=== PATIENT | female | born 2000 | race Caucasian/White ===

== ENCOUNTER 2022-08-06 12:15 | Observation (INO) | payer BC, SELFPAY ==
[2022-08-06] VITALS (12 sets, daily range): BP systolic 94–103; BP diastolic 54–60; PULSE 70–103; TEMP 36.7; BMI 25.8
[2022-08-06] MEDS: CAFFEINE 200 MG TABLET PO (14:50)
[2022-08-06] MEDS: TERBUTALINE SULFATE 1 MG/ML VIAL 0.25 MG SUB-Q (14:54)
--- NOTE | 2022-08-26 18:42 | PM.OBTRLD ---
OB - Triage/Final Diagnosis Visit Information Comments/Additional reasons for admission: I have assessed the risk for this patient, Madhu Garza, and determined that she would benefit from observation care. Final Diagnosis (1) False labor: Code(s): O47.9 - False labor, unspecified Status: Acute
== END 2022-08-06 15:54 | disposition home or self-care (01) ==
PROVIDERS: Admitting Provider Obstetrics & Gynecology; Visit Provider Obstetrics & Gynecology
DX: O47.03 False labor before 37 completed weeks of gestation, third trimester (principal); Z3A.29 29 weeks gestation of pregnancy
CPT/HCPCS: 96372; A9270; G0378; G0379; J3105

== ENCOUNTER 2022-08-27 09:01 | Observation (INO) | payer BC, SELFPAY ==
[2022-08-27 09:20] VITALS: BP 85/53; PULSE 81
[2022-08-27 09:30] VITALS: BP 100/54; PULSE 69
[2022-08-27 09:45] VITALS: BP 95/58; PULSE 72; BMI 27.1
[2022-08-27 09:53] LABS: Add Urine Microscopic? YES; Amorphous Sediment Urine Present; Appearance Urine Turbid (Clear); Bacteria Urine 4+ /hpf; Bilirubin Urine Negative (Negative); Blood Urine Negative (Negative); Color Urine Dark Yellow (Yellow); Glucose Urine UA Negative (Negative); Ketones Urine Negative (Negative); Leukocyte Esterase Ur 3+ LEU/UL (NEGATIVE); Nitrate Urine Negative (Negative); Protein Urine 1+ mg/dL (Negative); RBC Urine 0-2 /hpf (0-2); Squamous Epithelial Cell Urine Moderate /hpf (Few); WBC Urine >100 /hpf (0-3); pH Urine 8.5 (5.0-9.0)
[2022-08-27 10:00] VITALS: BP 93/56; PULSE 70
[2022-08-27 10:15] VITALS: BP 93/61; PULSE 67
[2022-08-27 10:30] VITALS: BP 97/65; PULSE 68
--- NOTE | 2022-09-04 07:35 | P.PNOB_ITS ---
OB - Triage/Final Diagnosis Visit Information Comments/Additional reasons for admission: I have assessed the risk for this patient, Madhu Garza, and determined that she would benefit from observation care. Evaluation Laboratory results: Laboratory Tests 08/27/22 09:30 Urine Color Dark yellow Urine Appearance Turbid H Urine pH 8.5 Ur Specific [place] 1.020 Urine Protein 1+ H Urine Glucose (UA) Negative Urine Ketones Negative Ur Blood (Man) Negative Urine Nitrate Negative Urine Bilirubin Negative Urine Urobilinogen 1.0 Ur Leukocyte Esterase 3+ H Urine RBC 0-2 Urine WBC >100 H Ur Squamous Epith Cells Moderate Amorphous Sediment Present Urine Bacteria 4+ H Urine Casts 11-20 Final Diagnosis (1) False labor: Code(s): O47.9 - False labor, unspecified Status: Acute
== END 2022-08-27 11:50 | disposition home or self-care (01) ==
PROVIDERS: Admitting Provider Obstetrics & Gynecology; Visit Provider Obstetrics & Gynecology
DX: O47.03 False labor before 37 completed weeks of gestation, third trimester (principal); O26.893 Other specified pregnancy related conditions, third trimester; R10.9 Unspecified abdominal pain; Z3A.32 32 weeks gestation of pregnancy
CPT/HCPCS: 81001; 87086; G0378; G0379

== ENCOUNTER 2022-09-14 11:14 | Observation (INO) | payer BC, SELFPAY ==
[2022-09-14] VITALS (19 sets, daily range): BP systolic 92–106; BP diastolic 47–69; PULSE 61–102; BMI 28.1
[2022-09-14 11:38] LABS: Glucose Point of Care 105 mg/dl (65-105)
[2022-09-14] MEDS: ACETAMINOPHEN 500 MG TABLET 1000 MG PO (12:23)
[2022-09-14] MEDS: LACTATED RINGERS 1,000 ML 999 ML IV CONT (12:24)
--- NOTE | 2022-09-14 12:49 | OBADM ---
This patient, Madhu Garza, admitted to the OB room OB Post 116 for observation. Patient/family oriented to hospital policies and general routines including ID bracelet, bed and alarms, visiting hours, pain management, procedures, bathroom and other care routines, personal items, smoking policy, room service/diet, and visiting hours. Patient/Family are encouraged to report perceived risks to care and to ask questions if they do not understand what they are told or what they should do.
--- NOTE | 2022-09-18 15:47 | PM.OBTRLD ---
OB - Triage/Final Diagnosis Visit Information Comments/Additional reasons for admission: I have assessed the risk for this patient, Madhu Garza, and determined that she would benefit from observation care. Evaluation Laboratory results: Laboratory Tests 09/14/22 11:35 POC Capillary Glucose 105 Final Diagnosis (1) Syncope and collapse: Code(s): R55 - Syncope and collapse Status: Acute
== END 2022-09-14 16:34 | disposition home or self-care (01) ==
PROVIDERS: Obstetrics & Gynecology; Admitting Provider Obstetrics & Gynecology; PCP Pediatrics; Visit Provider Obstetrics & Gynecology
DX: O26.893 Other specified pregnancy related conditions, third trimester (principal); R55 Syncope and collapse; Z3A.35 35 weeks gestation of pregnancy
CPT/HCPCS: 82948; A9270; G0378; G0379; J7120

== ENCOUNTER 2022-09-23 19:45 | Inpatient (IN) | payer BC, SELFPAY ==
[2022-09-23] VITALS (68 sets, daily range): BP systolic 75–117; BP diastolic 41–73; PULSE 25–107; O2SAT 93–100; BMI 28.5
--- NOTE | 2022-09-23 20:28 | WPDOBADMIT ---
Obstetrics - Admit Note Admission Note: record reviewed. No pertinent additions to the history and/or any subsequent changes in the physical findings that are not consistent with the expected course of the were found. pt arrived in labor, hx of placental abruption, anticipate vaginal delivery Additions to the history and/or subsequent changes in the physical findings follow. None.
[2022-09-23] MEDS: LACTATED RINGERS 1,000 ML 125 ML IV CONT ×2 (20:35→22:02)
[2022-09-23 20:39] LABS: Basophils Percent Auto 0.2 % (0.2-1.2); Eosinophils Percent Auto 0.2 % (0-4.4); Hematocrit 37.4 % (37.0-47.0); Hemoglobin 12.5 g/dL (12.0-15.0); Immature Granulocyte Absolute 0.04 K/mm3 (0.00-0.031); Immature Granulocyte Percent A 0.5 % (0-0.5); Lymphocytes Absolute Auto 1.84 K/mm3 (0.9-3.2); Lymphocytes Percent Auto 21.5 % (18.3-44.2); Mean Corpuscular HGB Conc 33.4 g/dl (32-36); Mean Corpuscular Hemoglobin 29.3 pg (26-34); Mean Corpuscular Volume 87.6 fl (80-100); Mean Platelet Volume 9.5 fl (7.4-10.4); Monocytes Absolute Auto 0.7 K/mm3 (0.1-0.6); Monocytes Percent Auto 8.6 % (2.6-8.5); Neutrophils Absolute Auto 5.9 K/mm3 (1.3-6.7); Platelet Count Result 216 k/mm3 (150-375); Red Blood Count 4.27 M/mm3 (4.2-5.4); Red Cell Distribution Width 12.1 % (11.5-14.5); White Blood Count 8.6 K/mm3 (4.5-10.0)
[2022-09-23 21:01] LABS: Glucose Point of Care 84 mg/dl (65-105)
[2022-09-23] MEDS: fentaNYL CITRATE INJ (*CRX) 100 MCG/2 ML VIAL 50 MCG IV PUSH ×2 (21:19→21:45)
--- NOTE | 2022-09-23 22:04 | WPDANESEPP ---
Anes - Eval Pre Procedure Procedure: Labor epidural Date/Time: 09/23/22 22:04 Surgeon: Paulo Preop Diagnosis: Abdominal pain with contractions Pre Op Diagnosis: Contractions Patient Data Age: 22 Gender: F Height: 1.47 m Weight: 62 kg Last Vital Signs Pulse 69 09/23/22 21:45 BP 110/68 09/23/22 21:45 Pulse Ox 95 09/23/22 22:01 Allergies Allergy/AdvReac Type Severity Reaction Status Date / Time No Known Allergies Allergy Verified 08/06/22 14:29 Home Medications Medication Instructions Recorded Confirmed Type magnesium oxide 140 mg capsule 140 mg PO DAILY 08/06/22 08/06/22 History vit no.95-ferrous 1 tablet PO DAILY 08/06/22 09/14/22 History fumarate 28 mg-folic acid 800 mcg tablet () nitrofurantoin 100 mg PO Q12H 7 days #14 caps 08/27/22 Rx monohydrate/macrocrystals 100 mg capsule ondansetron 4 mg disintegrating 4 mg PO Q6H PRN Nausea #15 tabs 08/27/22 Rx tablet Laboratory Tests 09/23/22 09/23/22 20:31 20:59 WBC 8.6 K/mm3 (4.5-10.0) RBC 4.27 M/mm3 (4.2-5.4) Hgb 12.5 g/dL (12.0-15.0) Hct 37.4 % (37.0-47.0) MCV 87.6 fl (80-100) MCH 29.3 pg (26-34) MCHC 33.4 g/dl (32-36) RDW 12.1 % (11.5-14.5) Plt Count 216 k/mm3 (150-375) MPV 9.5 fl (7.4-10.4) Immature Gran % (Auto) 0.5 % (0-0.5) Neut % (Auto) 69.0 % (45.5-73.1) Lymph % (Auto) 21.5 % (18.3-44.2) [place] % (Auto) 8.6 H % (2.6-8.5) Eos % (Auto) 0.2 % (0-4.4) Baso % (Auto) 0.2 % (0.2-1.2) Lymph # (Auto) 1.84 K/mm3 (0.9-3.2) [place] # (Auto) 0.7 H K/mm3 (0.1-0.6) Eos # (Auto) 0.0 K/mm3 (0-0.3) Baso # (Auto) 0.0 K/mm3 (0.0-0.1) Abs Immat Gran (auto) 0.04 H K/mm3 (0.00-0.031) Absolute Neuts (auto) 5.9 K/mm3 (1.3-6.7) Absolute Nucleated RBC 0.0 K/mm3 (0.0-0.012) Nucleated RBC % 0.0 % (0.0-0.2) POC Capillary Glucose 84 mg/dl (65-105) RPR Pending : gestational age HCG: positive Patient hx anesthesia problems: none Family hx anesthesia problems: none Results Review: All pre-operative results and documents have been reviewed as part of the pre-operative evaluation. [facility] Past Medical History Medical History Overweight (BMI 25.0-29.9) and not yet delivered Exam Day of Procedure 09/23/22 22:04 Patient weight: overweight
[2022-09-24] VITALS (45 sets, daily range): BP systolic 84–132; BP diastolic 43–86; PULSE 52–94; RESP 12–20; TEMP 36.3–36.8; O2SAT 96–100
[2022-09-24] MEDS: LORATADINE 10 MG TABLET PO (01:35)
[2022-09-24] MEDS: OXYTOCIN 30 UNITS/NS 500 ML 30 UNITS/500 ML BAG 999 UNITS IV CONT (01:55)
--- NOTE | 2022-09-24 02:06 | P.PCNOB_ITS ---
OB - Delivery Note Procedure Delivery date: 09/24/22 Procedure: Intrapartal Events: Other (meconium) Delivery augmentation: Rupture of Membranes Delivery monitor: External FHT and External Uterine Route of delivery: Laceration Description: None Specimen: Yes Quantitative Blood Loss (ml): 100 Anesthesia type: Epidural Disposition: Floor [place] Baby Date of : 09/24/22 Time of : 01:54 Weeks of gestation at delivery: 36 gender: Female presentation: vertex position: Left Occiput Anterior Placenta delivery description: Spontaneous and Other (meconium stained) Cord Vessel Description: 3 Vessels and Clamped/Cut Narrative: baby to warmer to be evaluated, mother in stable condition
[2022-09-24] MEDS: OXYTOCIN 30 UNITS/NS 500 ML 30 UNITS/500 ML BAG 125 UNITS IV CONT (02:35)
[2022-09-24] MEDS: BENZOCAINE 20% AER SPR (*SP) 56 GM CAN 1 SPRAY TOPICAL (02:40)
[2022-09-24] MEDS: SERTRALINE HCL 50 MG TABLET PO (03:10)
--- NOTE | 2022-09-24 04:58 | ADMGEN ---
This patient, Madhu Garza, was admitted to OB 2nd Floor Room 292-00. Patient/family oriented to hospital policies and general routines including ID bracelet, bed and alarms, visiting hours, pain management, procedures, bathroom and other care routines, personal items, smoking policy, room service/diet, and visiting hours. Information on how to activate the Rapid Response Team has been discussed. Patient/Family are encouraged to report perceived risks to care and to ask questions if they do not understand what they are told or what they should do.
[2022-09-24] MEDS: WITCH HAZEL 40 PADS 1 PAD TOPICAL (05:26)
[2022-09-24] MEDS: IBUPROFEN 600 MG TABLET PO ×2 (05:28→15:58)
[2022-09-24] MEDS: ACETAMINOPHEN 325 MG TABLET 650 MG PO ×2 (05:29→15:58)
[2022-09-24 05:38] LABS: Rapid Plasma Reagin Non-Reactive (NonReactive)
[2022-09-24] MEDS: MULTIVIT/MIN/PREN/FOL AC/IRON TABLET 1 TAB PO (09:41)
--- NOTE | 2022-09-24 10:57 | PC.NURSE ---
[id number] Introductions were made, then consulted with patient to assess needs related to . Mother led the conversation with her?plans to feed?her infant and the?experience so far. Mother has been pumping to protect her milk supply as infant is in level 2 nursery. Instructions given on cleaning, care, usage, that there should be no pain, pumping schedule for milk production, collection, and storage of human milk. Patient is pumping without pain and is knowledgeable with pumping and is encouraged to pump for comfort and nipple stretching/stimulation for adequate milk production every 3 hours 1-2 times at night and states she has been pumping every 3 hours. Resources provided for inpatient and outpatient services with the feeding sheet, mom/baby guide and name written on the white board. Mother voiced understanding of information and will call if there is a request for assistance.
[2022-09-24] MEDS: DOCUSATE SODIUM 100 MG CAPSULE PO (15:57)
[2022-09-25 05:31] LABS: Hematocrit 36.5 % (37.0-47.0); Hemoglobin 11.9 g/dL (12.0-15.0)
--- NOTE | 2022-09-25 06:26 | PM.OBPNVD ---
OB - PN: Subj Subjective Date/time seen: 09/25/22 06:26 Patient comments: no complaints and pain well controlled baby status: doing well (but on D10) feeding status: exclusively breast feeding OB - PN: Obj Data Labs 09/25/22 04:40 Labs: Laboratory Results - last 24 hr 09/25/22 04:40 Hgb 11.9 L Hct 36.5 L OB - PN A/P Plan day: 1 Plan: routine care Time Spent With Patient Time: Total time spent is greater than 50% in coordination of care (as documented) at patient's floor/unit and/or counseling patient: Time with patient: less than 15 minutes Exam Narrative: NAD abdomen soft, nontender, fundus firm below the umbilicus Extremities nontender, 1+ edema
--- NOTE | 2022-09-25 07:51 | WPDANLDPN2 ---
Anes-Prog Note L&D Date/Time: 09/25/22 07:51 Comfortable throughout: labor and delivery Neuraxial method: epidural Epidural/Spinal procedure site: clean & non-tender Neuro status: Neuro function grossly intact. Cardiovascular status: normal Respiratory status: normal Airway patency: baseline Mental status: baseline Post-Op hydration status: normal Vital Signs: Last Vital Signs Temp 36.3 C L 09/24/22 19:10 Pulse 60 09/24/22 23:00 Resp 16 09/24/22 23:00 BP 96/51 L 09/24/22 23:00 Pulse Ox 99 09/24/22 23:00 O2 Del Method Room Air 09/24/22 05:00 Pain score (VAS): 03/27 I/O: Intake & Output 09/24/22 09/24/22 09/25/22 15:59 23:59 07:59 Intake Total 240 Balance 240 Post-procedural complaints: none Patient feedback: Patient satisfied with anesthetic care.
[2022-09-25 08:10] VITALS: BP 96/61; PULSE 64; RESP 16; TEMP 36.6; O2SAT 100
[2022-09-25] MEDS: MULTIVIT/MIN/PREN/FOL AC/IRON TABLET 1 TAB PO (09:02)
[2022-09-25] MEDS: SERTRALINE HCL 50 MG TABLET PO (09:02)
[2022-09-25] MEDS: IBUPROFEN 600 MG TABLET PO ×2 (09:02→23:32)
[2022-09-25] MEDS: ACETAMINOPHEN 325 MG TABLET 650 MG PO ×2 (09:02→19:02)
[2022-09-25 20:26] VITALS: BP 92/60; PULSE 67; RESP 16; TEMP 36.7; O2SAT 98
--- NOTE | 2022-09-26 07:42 | PM.OBPNVD ---
OB - PN: Subj Subjective Date/time seen: 09/26/22 07:42 day 2 pp doing well breast and bottle OB - PN: Obj Data Labs 09/25/22 04:40 OB - PN A/P Plan day: 2 Plan: routine care and discharge home Time Spent With Patient Time: Total time spent is greater than 50% in coordination of care (as documented) at patient's floor/unit and/or counseling patient: Review of Systems Review of Systems: All systems reviewed & are unremarkable except as noted in HPI and below Exam Const: General: cooperative and healthy appearing Chest: Chest palpation & inspection: normal inspection of the chest Resp: Effort & Inspection: normal respiratory effort Cardio: Rate: regular rate Rhythm: regular rhythm GI: Inspection: normal to inspection Skin: General skin exam: normal color Extrem: Right lower extremity: normal to inspection Left lower extremity: normal to inspection
--- NOTE | 2022-09-26 07:44 | PM.OBDSVD ---
DS: Admitting Diagnosis Discharge Date 09/26/2022 Admitting Diagnosis labor DS: Discharge Diagnosis Discharge Diagnosis (1) Vaginal delivery: Code(s): O80 - Encounter for full-term uncomplicated delivery Status: Acute OB - DS: Summary OB Procedures : None OB Procedures Intrapartum: Spontaneous Vag Delivery OB Procedures: : None Time Spent with Patient Time attestation: Total time spent providing and/or coordinating discharge services: DS: Data Data Completed and Pending Pending studies at discharge: Pending at discharge 09/24/22 02:42 Surgical [PTH] Routine Discharge Plan Discharge Attending physician on discharge: Diaz Bates Discharging Clinician: Bisi Pool Patient Disposition: Home, Self-Care Activity: pelvic rest Diet: regular Patient Instructions: Antibiotic Form Stand Alone Forms: General Discharge Information Follow-up/Referrals: Bisi Pool, CNM [Certified Nurse Freight Checker] - 4 Weeks Discharge Medications: New ibuprofen 600 mg Tablet 600 mg PO Q6H PRN (Reason: Cramping) Qty: 30 0RF Continued magnesium oxide 140 mg Capsule 140 mg PO DAILY PNV cmb#95-ferrous fumarate-FA [] 28 mg iron- 800 mcg Tablet 1 tablet PO DAILY Discontinued nitrofurantoin monohyd/m-cryst 100 mg Capsule 100 mg PO Q12H 7 Days Qty: 14 0RF Rx Instructions: must administer with a meal/food ondansetron 4 mg Tablet,Disintegrating 4 mg PO Q6H PRN (Reason: Nausea) Qty: 15 0RF Date of admission: 09/23/22 20:10 Primary Care Provider: Shiva Moya Admitting Provider: Diaz Bates Attending physician on admission: Diaz Bates Condition: Stable
[2022-09-26 08:20] VITALS: BP 99/58; PULSE 56; RESP 18; TEMP 36.6; O2SAT 100
--- NOTE | 2022-09-26 15:59 | PC.NURSE ---
[id number] Mother led the conversation with her experience and plan to feed her so far and her ability to breastfeed/pump/supplement to feed infant. Reminded parents to use good handwashing technique to prevent infection. Mother is feeding appropriately for growth of infant and understands stimulating infant to eat if needed. Infant has had appropriate feedings in the last 24 hours meets the outcomes for weight, output and jaundice at this time. Mother states she is confident to continue feeding her at home, when to call for assistance and denies any additional assistance or education at this time. Reinforced understanding of milk production, transition of milk, signs of adequate intake, transition of stool, prevention/relief of engorgement, responsive watching for feeding cues, the different methods of stimulating infant to breastfeed 2-3 hours after the start of the last feeding, community resources, medication information reviewed per [facility] and when to call a provider using the resource of the mom and baby guide/[facility] website. Mother voiced understanding of the education shared.
[2022-09-27 10:23] VITALS: BP 91/54; PULSE 72; RESP 20; O2SAT 100
== END 2022-09-26 12:55 | disposition home or self-care (01) | DRG 807 ==
LOC: ANHLDR 21:36 → ANHOB2 09-24 05:02
PROVIDERS: Advanced Practice Midwife; Admitting Provider Obstetrics & Gynecology; PCP Pediatrics; Visit Provider Obstetrics & Gynecology
DX: O60.14X0 Preterm labor third trimester with preterm delivery third trimester, not applicable or unspecified (principal); Z37.0 Single live birth; Z3A.36 36 weeks gestation of pregnancy; O77.0 Labor and delivery complicated by meconium in amniotic fluid
CPT/HCPCS: 36415; 82948; 85014; 85018; 85025; 86592; 86850; 86900; 86901; 88307; A9270; J2590; J2795; J3010; J7120

== ENCOUNTER 2022-12-10 09:45 | Outpatient (CLI) | payer BC, SELFPAY ==
[2022-12-10 10:51] LABS: Hematocrit 39.5 % (37.0-47.0); Hemoglobin 12.7 g/dL (12.0-15.0); Mean Corpuscular HGB Conc 32.2 g/dl (32-36); Mean Corpuscular Volume 87.2 fl (80-100); Mean Platelet Volume 9.4 fl (7.4-10.4); Platelet Count Result 233 k/mm3 (150-375); Red Blood Count 4.53 M/mm3 (4.2-5.4); White Blood Count 4.3 K/mm3 (4.5-10.0)
[2022-12-10 11:02] LABS: Anion Gap 9 mmol/L (8-16); Blood Urea Nitrogen 7 mg/dL (7-17); Carbon Dioxide 26 mmol/L (22-30); Chloride 104 mmol/L (98-107); Potassium 4.3 mmol/L (3.4-5.0); Sodium 139 mmol/L (137-145)
[2022-12-10 11:03] LABS: Alanine Aminotransferase 16 U/L (6-35); Albumin Level 4.4 g/dL (3.5-5.1); Alkaline Phosphatase 76 U/L (38-126); Aspartate Amino Transferase 23 U/L (14-36); Bilirubin,Total 0.5 mg/dL (0.2-1.3); CRP < 0.5 mg/dL (<1.0); Calcium 9.2 mg/dL (8.4-10.2); Estimated Glomerular Filt Rate > 60; Glucose 75 mg/dL (65-110)
[2022-12-10 11:28] LABS: Thyroid Stimulating Hormone 0.535 uIU/mL (0.465-4.680)
[2022-12-10 12:00] LABS: Erythrocyte Sedimentation Rate 14 mm/hr (0-20)
[2022-12-13 19:43] LABS: Immunoglobulin A 89 mg/dL (47-310); TTG IGA AB <1.0 U/mL (<15.0)
== END 2022-12-10 09:46 | disposition home or self-care (01) ==
LOC: ANHLAB 09:47
PROVIDERS: PCP Pediatrics; Visit Provider Nurse Practitioner Family
DX: R19.7 Diarrhea, unspecified (principal); R10.11 Right upper quadrant pain; R11.0 Nausea
CPT/HCPCS: 36415; 80053; 82784; 84443; 85027; 85652; 86140; 86364

== ENCOUNTER 2022-12-31 02:47 | Day surgery (SDC) | payer OTHER, BC, SELFPAY ==
[2022-12-19 14:00] VITALS: BMI 25.5
[2022-12-31 12:59] VITALS: BP 94/63; PULSE 79; RESP 18; TEMP 36.5; O2SAT 100
[2022-12-31] MEDS: LACTATED RINGERS 1,000 ML 150 ML IV CONT (13:12)
--- NOTE | 2022-12-31 13:37 | P.PNAN_ITS ---
Anes - Initial Pre Proc Eval Procedure: Operation Date: 12/31/22 14:15 Proposed Procedures p Esophagogastroduodenoscopy & Colonoscopy - Mushtaq Pacheco MD Date/Time: 12/31/22 13:37 Surgeon: Mushtaq Pacheco MD Pre Op Diagnosis: Nausea and vomiting, Diarrhea, Patient Data Age: 22 Gender: F Height: 1.45 m Weight: 50.2 kg Last Vital Signs Temp 97.7 F 12/31/22 12:59 Pulse 79 12/31/22 12:59 Resp 18 12/31/22 12:59 BP 94/63 L 12/31/22 12:59 Pulse Ox 100 12/31/22 12:59 O2 Del Method Room Air 12/31/22 12:59 Allergies Allergy/AdvReac Type Severity Reaction Status Date / Time No Known Allergies Allergy Verified 12/31/22 12:58 Home Medications Medication Instructions Recorded Confirmed Type sertraline 25 mg tablet (Zoloft) 25 mg PO DAILY 12/10/22 12/31/22 History Patient hx anesthesia problems: none Family hx anesthesia problems: none Results Review: All pre-operative results and documents have been reviewed as part of the pre- operative evaluation. [facility] Past Medical History Medical History (Updated 12/10/22 @ 09:36 by ADRIAN Aleman) Nausea Overweight (BMI 25.0-29.9) and not yet delivered Right upper quadrant abdominal pain Social History Social History Smoking status: Former smoker Tobacco type: e-cigarettes/vaping Second hand tobacco smoke exposure: No Alcohol intake: never Substance use: never Substance use type: does not use Lack of Transportation: No Lack of Food: Never True Current Housing: I Have Housing Concerned About Future Housing: No Difficulty Paying Gas/Electric Bills: No Difficulty Paying for Meds: No Currently Unemployed: No Education: High School Diploma/GED Difficulty w/ Childcare or Family Care: No Living arrangements: with family Spiritual care concerns: No Anes - Eval Final PreProcedure Day of Procedure 12/31/22 13:37 Patient weight: normal Heart: regular rate and rhythm Lungs: clear to auscultation Airway: Mallampati scale class II Neurological: alert and oriented Last oral intake: >/= 8 hours ASA classification: II Emergent: no Anesthetic plan: proceed Anesthesia type and monitoring: general GIVS and standard monitoring Results Review: All pre-operative results and documents have been reviewed as part of the pre- operative evaluation. Informed Consent: The patient's anesthetic plan and its attendant risks and benefits were discussed with the patient/family/POA. Questions were solicited and answers provided to the satisfaction of the patient/family/POA.
--- NOTE | 2022-12-31 13:59 | WPDHPUPDATE1 ---
History and Physical Update Update Date/Time: 12/31/22 13:59 History and Physical has been reviewed, including an updated exam of the patient. There are NO changes in the patient's condition. Risks, benefits, and alternatives have been discussed and questions answered. Patient agrees to proceed with procedure.
--- NOTE | 2022-12-31 14:13 | SUR.OPER ---
EGD: [id number] COLON: Start 1416
[2022-12-31 14:31] VITALS: BP 71/38; PULSE 53; RESP 18; O2SAT 98
[2022-12-31 14:35] VITALS: BP 69/40; PULSE 66; RESP 18; O2SAT 98
[2022-12-31 14:45] VITALS: BP 71/35; PULSE 66; RESP 18; O2SAT 98
[2022-12-31 14:55] VITALS: BP 83/47; PULSE 58; RESP 18; O2SAT 98
--- NOTE | 2022-12-31 14:57 | SUR.PHASEII ---
144 Dr. Pedersen in to see patient regarding hypotension and unresponsiveness. Ephedrine given ivp per Dr. Pedersen 5mg.
[2022-12-31 15:00] VITALS: BP 81/41; PULSE 58; RESP 18; O2SAT 100
== END 2022-12-31 15:19 | disposition home or self-care (01) ==
PROVIDERS: PCP Pediatrics; Visit Provider Internal Medicine Gastroenterology
PROC: 0DJ08ZZ Inspection of Upper Intestinal Tract, Via Natural or Artificial Opening Endoscopic (ICD-10-PCS; CPT 43235; principal; 2022-12-31 14:15)
DX: K62.89 Other specified diseases of anus and rectum (principal); K29.50 Unspecified chronic gastritis without bleeding; Z87.891 Personal history of nicotine dependence
CPT/HCPCS: 45380; 43239; 88305; J2371; J2405; J2704; J3010; J7120

== ENCOUNTER 2023-01-03 11:05 | Emergency (ER) | payer OTHER, BC, SELFPAY ==
--- NOTE | ~2023-01-03 | CT_ITS ---
CT of the Abdomen and Pelvis: Indication: Abdominal pain Technique: 2.5 mm axial scans were obtained through the abdomen and pelvis following intravenous adm inistration of 100 cc of Omnipaque 350. Dose reduction technique was used on this scan by utilizing a utomated exposure control and iterative reconstruction technique. The dose-length product (DLP) was 1 98.36 mGy-cm. Findings: Scans through the lung bases are unremarkable. The liver, spleen, pancreas, gallbladder, adrenals and kidneys are within normal limits. No evidence of aortic aneurysm. No lymphadenopathy. No bowel obstruction or bowel wall thickening. There is no evidence to suggest acute appendicitis. Images through the pelvis were performed. Urinary bladder unremarkable. No adnexal mass seen. No asci dunia. Bilateral L5 pars interarticularis defects are present. Impression: No acute abnormalities seen. Bilateral L5 pars interarticularis defects. Reviewed, dictated and finalized at [facility]. Impression: No acute abnormalities seen. Bilateral L5 pars interarticularis defects.
[2023-01-03 11:24] VITALS: BP 116/72; PULSE 64; RESP 18; TEMP 36.1; O2SAT 100
[2023-01-03 12:03] LABS: Basophils Percent Auto 0.7 % (0.2-1.2); Eosinophils Absolute Auto 0.1 K/mm3 (0-0.3); Eosinophils Percent Auto 2.6 % (0-4.4); Hematocrit 39.8 % (37.0-47.0); Hemoglobin 12.9 g/dL (12.0-15.0); Immature Granulocyte Absolute 0.01 K/mm3 (0.00-0.031); Immature Granulocyte Percent A 0.2 % (0-0.5); Lymphocytes Absolute Auto 1.93 K/mm3 (0.9-3.2); Lymphocytes Percent Auto 45.7 % (18.3-44.2); Mean Corpuscular HGB Conc 32.4 g/dl (32-36); Mean Corpuscular Hemoglobin 28.6 pg (26-34); Mean Corpuscular Volume 88.2 fl (80-100); Mean Platelet Volume 9.2 fl (7.4-10.4); Monocytes Absolute Auto 0.3 K/mm3 (0.1-0.6); Monocytes Percent Auto 5.9 % (2.6-8.5); Neutrophils Absolute Auto 1.9 K/mm3 (1.3-6.7); Neutrophils Percent Auto 44.9 % (45.5-73.1); Platelet Count Result 234 k/mm3 (150-375); Red Blood Count 4.51 M/mm3 (4.2-5.4); Red Cell Distribution Width 14.1 % (11.5-14.5); White Blood Count 4.2 K/mm3 (4.5-10.0)
[2023-01-03 12:06] LABS: Appearance Urine Clear (Clear); Bilirubin Urine Negative (Negative); Blood Urine Negative (Negative); Color Urine Yellow (Yellow); Glucose Urine UA Negative (Negative); Ketones Urine Negative (Negative); Leukocyte Esterase Ur Negative LEU/UL (Negative); Nitrate Urine Negative (Negative); Protein Urine Negative (Negative); Specific Grav Ur 1.016 (1.001-1.035)
[2023-01-03 12:08] LABS: Add Urine Microscopic? NO
[2023-01-03 12:16] LABS: Alanine Aminotransferase 13 U/L (6-35); Albumin Level 4.2 g/dL (3.5-5.1); Alkaline Phosphatase 70 U/L (38-126); Anion Gap 6 mmol/L (8-16); Aspartate Amino Transferase 21 U/L (14-36); Bilirubin,Total 0.5 mg/dL (0.2-1.3); Blood Urea Nitrogen 5 mg/dL (7-17); Calcium 9.2 mg/dL (8.4-10.2); Carbon Dioxide 27 mmol/L (22-30); Chloride 105 mmol/L (98-107); Estimated CRCL calculation 106 ml/min; Estimated Glomerular Filt Rate > 60; Glucose 90 mg/dL (65-110); Lipase 105 U/L (23-300); Potassium 3.7 mmol/L (3.4-5.0); Sodium 138 mmol/L (137-145)
--- NOTE | 2023-01-03 14:09 | ED.ABDPAIN ---
HPI - Abdominal Pain General Chief Complaint: Abdominal Pain Stated Complaint: ABD pain/ Blood in stool Time Seen by Provider: 01/03/23 13:13 History of Present Illness HPI narrative: Patient is a 22-year-old female who presents ER with lower abdominal pain. Patient underwent colonoscopy on 12/31/2022. She was having chronic rectal bleeding. She continues to have some blood when she has a bowel movement. She has been eating a high-fiber diet. She reports pain has increased since her scope which showed a mass that was ulcerated and bleeding. She has been referred to colorectal surgery. She does not have an appointment yet. Pathology does show that this is nonmalignant. Patient reports she has had some fatigue. No loss of consciousness. Related Data Home Medications Medication Instructions Recorded Confirmed sertraline 25 mg tablet (Zoloft) 25 mg PO DAILY 12/10/22 12/31/22 Allergies Allergy/AdvReac Type Severity Reaction Status Date / Time No Known Allergies Allergy Verified 01/03/23 13:13 Review of Systems Review of Systems: All systems reviewed & are unremarkable except as noted in HPI and below Constitutional: Constitutional: Denies chills, Reports fatigue and Denies fever(s) ENT: Denies nasal congestion and Denies sore throat Cardiovascular: Cardiovascular: Denies chest pain and Denies rapid heart rate Respiratory: Respiratory: Denies cough and Denies dyspnea Gastrointestinal: Gastrointestinal: Reports abdominal pain, Denies diarrhea, Denies nausea and Denies vomiting Comments: Blood in stool (chronic) Genitourinary: Genitourinary: Reports no additional female genitourinary complaints [facility] Past Medical History Medical History (Updated 01/03/23 @ 15:46 by Cesar Huang MD) Blood in stool Nausea Overweight (BMI 25.0-29.9) and not yet delivered Rectal mass Right upper quadrant abdominal pain Surgical History Surgical History (Updated 01/03/23 @ 14:11 by Cesar Huang MD) History of colonoscopy [facility], 12/31/2022. Rectal mass w/o malignancy History of esophagogastroduodenoscopy (EGD) Social History Social History Smoking status: Former smoker Tobacco type: e-cigarettes/vaping Second hand tobacco smoke exposure: No Alcohol intake: never Substance use: never Substance use type: does not use Lack of Transportation: No Lack of Food: Never True Current Housing: I Have Housing Concerned About Future Housing: No Difficulty Paying Gas/Electric Bills: No Difficulty Paying for Meds: No Currently Unemployed: No Education: High School Diploma/GED Difficulty w/ Childcare or Family Care: No Living arrangements: with family Spiritual care concerns: No Exam Narrative: GENERAL: Well-appearing, well-nourished, and in no acute distress. HEAD: Normocephalic, atraumatic. ENT: Mucous membranes moist. CHEST: Clear to auscultation. No respiratory distress. HEART: Regular rate and rhythm. Normal peripheral pulses. ABDOMEN: Soft, nontender, nondistended. Digital rectal exam with normal tone, no hemorrhoids, scant gross blood without palpable mass. EXTREMITIES: Normal range of motion. No edema. SKIN: Warm, dry, no rash. NEURO: Alert and oriented x3. PSYCH: Normal mood and affect. Course Vital Signs Vital signs: Vital Signs Temperature 97.0 F L 01/03/23 11:24 Pulse Rate 64 01/03/23 11:24 Respiratory Rate 18 01/03/23 11:24 Blood Pressure 116/72 01/03/23 11:24 Pulse Oximetry 100 01/03/23 11:24 Oxygen Delivery Room Air 01/03/23 11:24 Temperature 97.0 F L 01/03/23 11:24 Pulse Rate 70 01/03/23 15:44 Respiratory Rate 16 01/03/23 15:44 Blood Pressure 112/69 01/03/23 15:44 Pulse Oximetry 99 01/03/23 15:44 Oxygen Delivery Room Air 01/03/23 11:24 MDM - Abdominal Pain Lab Data 01/03/23 11:47 01/03/23 11:47
[2023-01-03 15:44] VITALS: BP 112/69; PULSE 70; RESP 16; O2SAT 99
== END 2023-01-03 15:56 | disposition home or self-care (01) ==
PROVIDERS: Emergency Medicine; Emergency Provider Emergency Medicine; PCP Pediatrics
DX: R10.32 Left lower quadrant pain (principal); Z87.891 Personal history of nicotine dependence
CPT/HCPCS: 36415; 74177; 80053; 81003; 81025; 83690; 85025; 99284; Q9967